=== PATIENT | male | born 1955 | race African-American/Black ===

== ENCOUNTER 2022-11-11 10:45 | Emergency (ER) | payer OTHER ==
--- OUTSIDE RECORDS SUMMARY | 2022-11-11 10:49 | XMS REPORT | Continuity of Care Document ---
:1955 Author Organization [facility] t Address [address] [place] [address] Care Team Providers Name Role Phone Daljit Gallardo Attending Clinician Unavailable Payers Payer Name Policy Type Policy Number Effective Date Expiration Date S terrell AET[employer] MEDICARE 53 [id number] 2018 Common [facility]pi rit PPO 00:00:00 [facility] Problems Condition Condition Condition Status Onset Resolution Last Treating Co mments Source Name Details Category Date Date Treatment Clinician Date Mixed Hyperlipid Problem Commo n hyperlipid emia, Spirit emia mixed [facility] [id number] Diabetic Problem Comm on neuropathy [facility] , painful [facility] Gastro-eso Gastro-eso Problem C ommon phageal phageal Spirit reflux reflux - [facility] disease disease St without without [facility]ophagiti [facility]ophagiti [facility] Vitamin B Problem Commo n B12 12 Spirit deficiency deficiency - [facility] (non St anemic) [facility] Type II Diabetes Problem Common diabetes type 2, Spirit mellitus uncontroll - CH I uncontroll ed [facility] Essential Benign Problem Common hypertensi essential Spi rit on HTN [facility] Osteoarthr Osteoarthr Problem C ommon itis of itis of Spirit multiple multiple - [facility] joints joints [facility] [id number] Adult BMI Problem Com mon 32.0-32.9 Spirit kg/sq m [facility] [id number] Renal Problem Common insufficie Spirit ncy [facility] [id number] Other Problem Common obesity Spirit due to - [facility]I excess [facility] Cataract Cataract Problem Commo n [facility] [id number] Constipati Problem Com mon on, Spirit unspecifie - CHI d constipati [facility] on [facility] [id number] Primary Problem Comm on osteoarthr Spirit itis of - [facility]I right [facility] [id number] Type [address] [facility] mellitus - [facility]I with [facility] long-term current use of insulin Allergies, Adverse Reactions, Alerts This patient has no known allergies or adverse reactions. Social History Social Habit Start Date Stop Date Quantity Comments Source History of Tobacco Use Co mmon [facility] Sex Assigned At Com mon [facility] Smoking Status Start Date Stop Date Source Never Smoker Common [facility] Medications Ordered Filled Start Stop Current Ordering Indication Dosage Frequency Signature Comments Components Source Medication Medication Date Date Medication? Clinician (SIG) Name Name Tizanidine Tizanidine 2020-0 Yes Daljit 1 tablet Common HCl HCl 8-20 Gallardo at bedtime Spirit 00:00: as needed - [facility] for muscle [facility] Cyclobenzap Cyclobenzap 2020-0 Yes Daljit 1 tablet Common rine HCl rine HCl 8-14 Gallardo at bedtime Spirit 00:00: as needed - [facility] LIDOCAINE LIDOCAINE 2018-10 No 5mL Com mon HCL 10MG/ML HCL 10MG/ML 0-18 S pirit 00:00: - [facility] Kenalog Kenalog 2018-10 No 1mL Common (Triamcinol (Triamcinol 0-18 S pirit one) one) 00:00: - [facility] LIDOCAINE LIDOCAINE 2018- No 5mL Com mon HCL 10MG/ML HCL 10MG/ML 0-18 [facility]-10 No 1mL Common (Triamcinol (Triamcinol 0-18 S pirit one) one) 00:00: - [facility] LIDOCAINE LIDOCAINE 2018- No 5mL Com mon HCL 10MG/ML HCL 10MG/ML 0-18 S pirit 00:00: - [facility] Kenalog Kenalog 2019-1 No 1mL Common (Triamcinol (Triamcinol 0-18 S pirit one) one) 00:00: - [facility] 00 [facility] Pharmacist Pharmacist No Pharmacist Choice Choice Choice Lancets - Lancets - Lancets - Jardiance Jardiance No 1{table QD Jardiance 25 MG 25 MG t} 25 MG Trulicity Trulicity No Trulicity 0.75 0.75 0.75 MG/0.5ML MG/0.5ML MG/0.5ML tiZANidine tiZANidine No QD tiZANidine HCl 2 MG HCl 2 MG HCl 2 MG Omeprazole Omeprazole No 1{capsu QD Omeprazole 40 MG 40 MG le} 40 MG Rosuvastati Rosuvastati No Rosuvastat n Calcium n Calcium in Calcium 10 MG 10 MG 10 MG Pharmacist Pharmacist No Pharmacist Choice Choice Choice Alcohol - Alcohol - Alcohol - Crestor 10 Crestor 10 No 1{table QD Crestor 10 MG MG t} MG Linzess Linzess No Linzess Omeprazole Omeprazole No 1{capsu QD Omeprazole 40 MG 40 MG le} 40 MG Prodigy No Prodigy No No Prodigy No Coding Coding Coding Blood Gluc Blood Gluc Blood Gluc - - - amLODIPine amLODIPine No 1{table QD amLODIPine Besylate 10 Besylate 10 t} Besylate MG MG 10 MG metFORMIN metFORMIN No metFORMIN HCl 1000 MG HCl 1000 MG HCl 1000 MG tiZANidine tiZANidine No QD tiZANidine HCl 2 MG HCl 2 MG HCl 2 MG Irbesartan Irbesartan No 1{table QD Irbesartan 300 MG 300 MG t} 300 MG Trulicity Trulicity No Trulicity 0.75 0.75 0.75 MG/0.5ML MG/0.5ML MG/0.5ML Pharmacist Pharmacist No Pharmacist Choice Choice Choice Lancets - Lancets - Lancets - Rosuvastati Rosuvastati No Rosuvastat n Calcium n Calcium in Calcium 10 MG 10 MG 10 MG Irbesartan Irbesartan No 1{table QD Irbesartan 300 MG 300 MG t} 300 MG Omeprazole Omeprazole No 1{capsu QD Omeprazole 40 MG 40 MG le} 40 MG Linzess Linzess No Linzess amLODIPine amLODIPine No amLODIPine Besylate 10 Besylate 10 Besylate MG MG 10 MG tiZANidine tiZANidine No QD tiZANidine HCl 2 MG HCl 2 MG HCl 2 MG metFORMIN metFORMIN No metFORMIN HCl 1000 MG HCl 1000 MG HCl 1000 MG Jardiance Jardiance No 1{table QD Jardiance 25 MG 25 MG t} 25 MG tiZANidine tiZANidine No QD tiZANidine HCl 2 MG HCl 2 MG HCl 2 MG Trulicity Trulicity No Trulicity 0.75mg/0.5m 0.75mg/0.5m 0.75mg/0.5 l l ml Prodigy No Prodigy No No Prodigy No Coding Coding Coding Blood Gluc Blood Gluc Blood Gluc - - - amLODIPine amLODIPine No 1{table QD amLODIPine Besylate 10 Besylate 10 t} Besylate MG MG 10 MG Omeprazole Omeprazole No 1{capsu QD Omeprazole 40 MG 40 MG le} 40 MG Crestor 10 Crestor 10 No 1{table QD Crestor 10 MG MG t} MG metFORMIN metFORMIN No 1{table BID metFORMIN HCl 1000 MG HCl 1000 MG t_with_ HCl 1000 meals} MG Pharmacist Pharmacist No Pharmacist Choice Choice Choice Alcohol - Alcohol - Alcohol - Jardiance Jardiance No 1{table QD Jardiance 25 MG 25 MG t} 25 MG Pharmacist Pharmacist No Pharmacist Choice Choice Choice Alcohol - Alcohol - Alcohol - tiZANidine tiZANidine No tiZANidine HCl 2 MG HCl 2 MG HCl 2 MG Rosuvastati Rosuvastati No Rosuvastat n Calcium n Calcium in Calcium 10 MG 10 MG 10 MG Pharmacist Pharmacist No Pharmacist Choice Choice Choice Lancets - Lancets - Lancets - Irbesartan Irbesartan No 1{table QD Irbesartan 300 MG 300 MG t} 300 MG Crestor 10 Crestor 10 No 1{table QD Crestor 10 MG MG t} MG metFORMIN metFORMIN No 1{table BID metFORMIN HCl 1000 MG HCl 1000 MG t_with_ HCl 1000 meals} MG tiZANidine tiZANidine No QD tiZANidine HCl 2 MG HCl 2 MG HCl 2 MG Omeprazole Omeprazole No 1{capsu QD Omeprazole 40 MG 40 MG le} 40 MG amLODIPine amLODIPine No 1{table QD amLODIPine Besylate 10 Besylate 10 t} Besylate MG MG 10 MG Prodigy No Prodigy No No Prodigy No Coding Coding Coding Blood Gluc Blood Gluc Blood Gluc - - - Trulicity Trulicity No Trulicity 0.75mg/0.5m 0.75mg/0.5m 0.75mg/0.5 l l ml metFORMIN metFORMIN No 1{table BID metFORMIN HCl 1000 MG HCl 1000 MG t_with_ HCl 1000 meals} MG Prodigy No Prodigy No No Prodigy No Coding Coding Coding Blood Gluc Blood Gluc Blood Gluc - - - Irbesartan Irbesartan No Irbesartan 300 MG 300 MG 300 MG Pharmacist Pharmacist No Pharmacist Choice Choice Choice Lancets - Lancets - Lancets - Crestor 10 Crestor 10 No 1{table QD Crestor 10 MG MG t} MG Rosuvastati Rosuvastati No Rosuvastat n Calcium n Calcium in Calcium 10 MG 10 MG 10 MG Omeprazole Omeprazole No Omeprazole 40 MG 40 MG 40 MG Omeprazole Omeprazole No 1{capsu QD Omeprazole 40 MG 40 MG le} 40 MG Pharmacist Pharmacist No Pharmacist Choice Choice Choice Alcohol - Alcohol - Alcohol - Trulicity Trulicity No Trulicity 0.75mg/0.5m 0.75mg/0.5m 0.75mg/0.5 l l ml Trulicity Trulicity No Trulicity 0.75 0.75 0.75 MG/0.5ML MG/0.5ML MG/0.5ML tiZANidine tiZANidine No tiZANidine HCl 2 MG HCl 2 MG HCl 2 MG metFORMIN metFORMIN No metFORMIN HCl 1000 MG HCl 1000 MG HCl 1000 MG Irbesartan Irbesartan No 1{table QD Irbesartan 300 MG 300 MG t} 300 MG tiZANidine tiZANidine No QD tiZANidine HCl 2 MG HCl 2 MG HCl 2 MG amLODIPine amLODIPine No 1{table QD amLODIPine Besylate 10 Besylate 10 t} Besylate MG MG 10 MG Jardiance Jardiance No 1{table QD Jardiance 25 MG 25 MG t} 25 MG Jardiance Jardiance No 1{table QD Jardiance 25 MG 25 MG t} 25 MG Rosuvastati Rosuvastati No Rosuvastat n Calcium n Calcium in Calcium 10 MG 10 MG 10 MG Omeprazole Omeprazole No 1{capsu QD Omeprazole 40 MG 40 MG le} 40 MG Prodigy No Prodigy No No Prodigy No Coding Coding Coding Blood Gluc Blood Gluc Blood Gluc - - - tiZANidine tiZANidine No QD tiZANidine HCl 2 MG HCl 2 MG HCl 2 MG Trulicity Trulicity No Trulicity 0.75mg/0.5m 0.75mg/0.5m 0.75mg/0.5 l l ml tiZANidine tiZANidine No QD tiZANidine HCl 2 MG HCl 2 MG HCl 2 MG Crestor 10 Crestor 10 No 1{table QD Crestor 10 MG MG t} MG Omeprazole Omeprazole No 1{capsu QD Omeprazole 40 MG 40 MG le} 40 MG Pharmacist Pharmacist No Pharmacist Choice Choice Choice Alcohol - Alcohol - Alcohol - amLODIPine amLODIPine No 1{table QD amLODIPine Besylate 10 Besylate 10 t} Besylate MG MG 10 MG Linzess Linzess No Linzess metFORMIN metFORMIN No 1{table BID metFORMIN HCl 1000 MG HCl 1000 MG t_with_ HCl 1000 meals} MG Irbesartan Irbesartan No 1{table QD Irbesartan 300 MG 300 MG t} 300 MG Pharmacist Pharmacist No Pharmacist Choice Choice Choice Lancets - Lancets - Lancets - metFORMIN metFORMIN No 1{table BID metFORMIN HCl 1000 MG HCl 1000 MG t_with_ HCl 1000 meals} MG Trulicity Trulicity No Trulicity 0.75mg/0.5m 0.75mg/0.5m 0.75mg/0.5 l l ml Immunizations Ordered Immunization Filled Immunization Date Status Commen ts Source Name Name FLUZONE HIGH DOSE FLUZONE HIGH DOSE 2022-08-26 Completed [facility] OVER 65 OVER 65 10:34:00 - [facility] Prevnar 20 (PCV20) Prevnar 20 (PCV20) 2021-12-24 Completed [facility] 10:19:00 - [facility] Prevnar 20 (PCV20) Prevnar 20 (PCV20) 2021-12-24 Completed [facility] 10:19:00 - [facility] Prevnar 20 (PCV20) Prevnar 20 (PCV20) 2021-12-24 Completed [facility] 10:19:00 - [facility] Fluzone Fluzone 2021-09-26 Completed [facility] 09:50:00 - [facility] Fluzone Fluzone 2021-09-26 Completed [facility] 09:50:00 - [facility] Fluzone Fluzone 2021-09-26 Completed [facility] 09:50:00 - [facility] Fluzone Fluzone 2021-09-26 Completed [facility] 09:50:00 - [facility] LIDOCAINE HCL LIDOCAINE HCL 2019-07-30 Completed Common S pirit 10MG/ML 10MG/ML 09:59:00 - [facility] Kenalog Kenalog 2019-07-30 Completed [facility] (Triamcinolone) (Triamcinolone) 09:59:00 - I [facility] FluAD FluAD 2018-11-17 Completed [facility] 10:01:00 - [facility] Adacel (Tdap) Adacel (Tdap) 2018-11-17 Completed Common S pirit 10:01:00 - [facility] FluAD FluAD 2018-11-17 Completed [facility] 10:01:00 - [facility] Adacel (Tdap) Adacel (Tdap) 2018-11-17 Completed Common S pirit 10:01:00 - [facility] FluAD FluAD 2018-11-17 Completed [facility] 10:01:00 - [facility] Adacel (Tdap) Adacel (Tdap) 2018-11-17 Completed Common S pirit 10:01:00 - [facility] FluAD FluAD 2018-11-17 Completed [facility] 10:01:00 - [facility] Adacel (Tdap) Adacel (Tdap) 2018-11-17 Completed Common S pirit 10:01:00 - [facility] FluAD FluAD 2018-11-17 Completed [facility] 10:01:00 - [facility] Adacel (Tdap) Adacel (Tdap) 2018-11-17 Completed Common S pirit 10:01:00 - [facility] TDAP > 7 TDAP > 7 2018-11-17 Completed [facility] Years-Adacel Years-Adacel 00:00:00 - [facility] FluAD FluAD 2018-11-17 Completed [facility] 00:00:00 [facility] Vital Signs Vital Name Observation Time Observation Value Comments Source height 2022-08-26 10:10:00 71 [in_i] Common [facility] weight 2022-08-26 10:10:00 209.5 [lb_av] [facility] temperature 2022-08-26 10:10:00 97.4 [degF] Common [facility] bmi 2022-08-26 10:10:00 29.22 kg/m2 [facility] oximetry 2022-08-26 10:10:00 98 % [facility] respiratory rate 2022-08-26 10:10:00 18 /min Comm on [facility] blood pressure 2022-08-26 10:10:00 135 mm[Hg] [facility] - systolic [facility] blood pressure 2022-08-26 10:10:00 70 mm[Hg] Common [facility] - diastolic [facility] height 2022-04-25 09:30:00 71 [in_i] [facility] weight 2022-04-25 09:30:00 215 [lb_av] [facility] temperature 2022-04-25 09:30:00 97.4 [degF] [facility] bmi 2022-04-25 09:30:00 29.98 kg/m2 [facility] oximetry 2022-04-25 09:30:00 97 % [facility] respiratory rate 2022-04-25 09:30:00 18 /min Comm on [facility] blood pressure 2022-04-25 09:30:00 137 mm[Hg] Common [facility] - systolic [facility] blood pressure 2022-04-25 09:30:00 72 mm[Hg] Common [facility] - diastolic [facility] height 2021-12-24 10:00:00 71 [in_i] Common [facility] weight 2021-12-24 10:00:00 207.3 [lb_av] Common [facility] temperature 2021-12-24 10:00:00 98.6 [degF] [facility] bmi 2021-12-24 10:00:00 28.91 kg/m2 [facility] oximetry 2021-12-24 10:00:00 99 % [facility] respiratory rate 2021-12-24 10:00:00 17 /min Comm on [facility] blood pressure 2021-12-24 10:00:00 132 mm[Hg] [facility] - systolic [facility] blood pressure 2021-12-24 10:00:00 76 mm[Hg] Common [facility] - diastolic [facility] height 2021-09-26 09:30:00 71 [in_i] Common [facility] weight 2021-09-26 09:30:00 218.2 [lb_av] [facility] temperature 2021-09-26 09:30:00 98.1 [degF] Common [facility] bmi 2021-09-26 09:30:00 30.43 kg/m2 [facility] oximetry 2021-09-26 09:30:00 98 % [facility] respiratory rate 2021-09-26 09:30:00 16 /min Comm on [facility] blood pressure 2021-09-26 09:30:00 135 mm[Hg] [facility] - systolic [facility] blood pressure 2021-09-26 09:30:00 72 mm[Hg] [facility] - diastolic [facility] height 2021-06-05 08:10:00 71 [in_i] Common [facility] weight 2021-06-05 08:10:00 222.6 [lb_av] [facility] temperature 2021-06-05 08:10:00 97.4 [degF] Common [facility] bmi 2021-06-05 08:10:00 31.04 kg/m2 Common S [facility] oximetry 2021-06-05 08:10:00 95 % Common S [facility] respiratory rate 2021-06-05 08:10:00 17 /min Comm on [facility] blood pressure 2021-06-05 08:10:00 132 mm[Hg] Common [facility] - systolic [facility] blood pressure 2021-06-05 08:10:00 70 mm[Hg] Common [facility] - diastolic [facility] Procedures This patient has no known procedures. Encounters Start End Encounter Admission Attending Care Care Encounter Source Date/Time Date/Time Type Type Clinicians Facility Department ID 2022-08-22 Outpatient Gallardo, STLMLC STLC [id number] Common 09:59:00 Daljit [facility] 2022-04-23 Outpatient Gallardo, STLMLC STLC [id number] Common 12:41:00 Daljit [facility] 2021-12-19 Outpatient Gallardo, STLMLC STLC [id number] Common 16:45:02 Daljit [facility] 2021-11-16 Outpatient Gallardo, STLMLC STLC [id number] Common 14:46:00 Daljit [facility] 2021-11-07 Outpatient Gallardo, STLMLC STLMLC [id number] Common 13:35:14 Daljit [facility] 2021-11-07 Outpatient Gallardo, STLMLC STLMLC [id number] Common 12:30:57 Daljit [id number] [facility] 2021-11-07 Outpatient Gallardo, STLMLC STLMLC [id number] Common 11:21:54 Daljit [id number] [facility] 2021-11-07 Outpatient Gallardo, STLMLC STLMLC [id number] Common 11:07:47 Daljit [id number] [facility] 2021-11-07 Outpatient Gallardo, STLMLC STLMLC [id number] Common 11:07:09 Daljit [id number] [facility] 2022-08-26 2022-08-26 OFFICE STLMLC STLMLC [id number] Co mmon 00:00:00 00:00:00 VISIT Spirit ESTAB PT - CHI LEVEL 4 [facility] 2022-04-25 2022-04-25 OFFICE STLMLC STLMLC [id number] Co mmon 00:00:00 00:00:00 VISIT Spirit ESTAB PT - CHI LEVEL 4 [facility] 2021-12-24 2021-12-24 PREV VISIT STLMLC STLMLC [id number] Common 00:00:00 00:00:00 EST AGE 63 Spi rit & OVER - CHI [facility] 2021-09-26 2021-09-26 OFFICE STLMLC STLMLC [id number] Co mmon 00:00:00 00:00:[address] [facility] ESTAB PT - CHI LEVEL 4 [facility] 2021-06-05 2021-06-05 OFFICE STLMLC STLMLC [id number] Co mmon 00:00:00 00:00:[address] [facility] ESTAB PT - CHI LEVEL 4 [facility] 2021-04-09 2021-04-09 Outpatient STLMLC STLMLC [id number] Common 00:00:00 00:00:00 [facility] 2021-03-07 2021-03-07 Outpatient STLMLC STLMLC [id number] Common 00:00:00 00:00:00 [facility] 2020-12-08 2020-12-08 Outpatient STLMLC STLMLC [id number] Common 00:00:00 00:00:00 [facility] 2020-12-08 2020-12-08 Outpatient STLMLC STLMLC [id number] Common 00:00:00 00:00:00 [facility] 2020-08-29 2020-08-29 Outpatient STLMLC STLMLC [id number] Common 00:00:00 00:00:00 [facility] 2020-05-31 2020-05-31 [facility] [id number] Common 16:29:00 16:29:00 [employer] [facility] [employer] [facility] 2020-05-26 2020-05-26 [facility] [id number] Common 10:15:00 10:15:[address] [facility] 2020-02-24 2020-02-24 [facility] [id number] Common 10:15:00 10:15:[address] [facility] 2019-11-26 2019-11-26 [facility] [id number] Common 08:15:00 08:15:[address] [facility] 2019-11-17 2019-11-17 [facility] [id number] Common 16:54:00 16:54:[address] [facility] 2019-09-06 2019-09-06 [facility] [id number] Common 10:00:00 10:00:00 [facility] - [facility] Clinic [facility] 2019-07-30 2019-07-30 [facility] [id number] Common 09:00:00 09:00:00 [facility] Joint - [facility] Clinic of [facility] 2019-07-14 2019-07-14 [facility] [id number] Common 08:45:00 08:45:[address] [facility] 2019-04-13 2019-04-13 [facility] [id number] Common 08:30:00 08:30:[address] [facility] 2019-01-15 2019-01-15 [facility] [id number] Common 08:15:00 08:15:[address] [facility] 2018-12-08 2018-12-08 [facility] [id number] Common 14:12:00 14:12:[address] [facility] 2018-11-17 2018-11-17 [facility] [id number] Common 09:30:00 09:30:[address] [facility] 2018-10-30 2018-10-30 [facility] [id number] Common 08:30:00 08:30:[address] [facility] 2018-10-14 2018-10-14 [facility] [id number] Common 08:15:00 08:15:[address] [facility] 2018-07-13 2018-07-13 [facility] [id number] Common 10:00:00 10:00:[address] [facility] 2018-06-03 2018-06-03 [facility] [id number] Common 15:08:00 15:08:[address] [facility] 2018-03-17 2018-03-17 [facility] [id number] Common 16:35:00 16:35:[address] [facility] 2018-03-17 2018-03-17 [facility] [id number] Common 13:30:00 13:30:[address] [facility] Results This patient has no known results.
[2022-11-11] MEDS ORDERED: CYCLOBENZAPRINE 10 MG TAB ONE (11:27)
[2022-11-11] MEDS ORDERED: KETOROLAC 30 MG/ML INJ ONE (11:28)
--- NOTE | 2022-11-11 12:43 | RAD REPORT ---
EXAM DESCRIPTION: RAD - C Spine Ap/Lat - 11/11/2022 12:02 pm CLINICAL HISTORY: PAIN COMPARISON: SPINE CERVICAL AP LAT dated 09/28/2012; SPINE CERVICAL W OBLIQUES dated 09/26/2003 FINDINGS: Cervical bodies are normal in height and alignment.No fracture or acute bony process seen. Moderate disc thinning with posterior osteophyte formation noted C4-5 and C5-6. No prevertebral soft tissue thickening or other suspicious soft tissue finding. The odontoid is normal lateral masses are symmetric. Mild aortic atherosclerosis. IMPRESSION: Moderate midcervical degenerative spondylosis.
--- NOTE | 2022-11-11 12:44 | RAD REPORT ---
EXAM DESCRIPTION: RAD - Shoulder Right 2 View - 11/11/2022 12:02 pm CLINICAL HISTORY: PAIN COMPARISON: Shoulder Right 2 View dated 04/13/2019 FINDINGS: Mild AC joint and glenohumeral joint arthritic changes. No fracture or dislocation seen.
--- NOTE | 2022-11-11 12:46 | RAD REPORT ---
EXAM DESCRIPTION: RAD - Elbow Right 3 View - 11/11/2022 12:03 pm CLINICAL HISTORY: PAIN COMPARISON: No comparisons FINDINGS: No acute fracture or dislocation. Small olecranon spur.
--- NOTE | 2022-11-11 12:56 | ER ---
Nurse's Notes [facility] Name: Blaine March Jr Age: 67 yrs Sex: Male : 1955 Arrival Date: 11/11/2022 Time: 10:47 Bed 12 Private MD: Daljit Gallardo Diagnosis: Other sprain of right shoulder joint;Sprain of ligaments of cervical spine, initial encounter Presentation: 11/11 10:54 Chief complaint: Patient states: he fell Friday11/08/2022 onto grass while working ap3 outside. patient states he fell onto his right elbow, injuring his right shoulder. Patient reports pain to his right shoulder and the right side of his neck. Coronavirus screen: At this time, the client does not indicate any symptoms associated with coronavirus-19. Ebola Screen: No symptoms or risks identified at this time. Initial Sepsis Screen: Does the patient meet any 2 criteria? No. Patient's initial sepsis screen is negative. Does the patient have a suspected source of infection? No. Patient's initial sepsis screen is negative. Risk Assessment: Do you want to hurt yourself or someone else? Patient reports no desire to harm self or others. Onset of symptoms was November 08, 2022. 10:54 Method Of Arrival: Ambulatory ap3 10:54 Acuity: MARÍA 4 ap3 Triage Assessment: 10:59 General: Appears uncomfortable, Behavior is calm, cooperative. Pain: Complains of pain ap3 in anterior aspect of right shoulder Pain radiates to neck Pain began suddenly, 2-3 days ago. 10:59 Neuro: Level of Consciousness is awake, alert, obeys commands, Oriented to person, ap3 place, time, situation, Gait is steady, Speech is normal. Cardiovascular: Patient's skin is warm and dry. Respiratory: Airway is patent Respiratory effort is even, unlabored, Respiratory pattern is regular, symmetrical. Musculoskeletal: Range of motion: intact in right shoulder. 12:23 Injury Description: fall from standing. ap3 Historical: - Allergies: 10:56 No Known Allergies; ap3 - Home Meds: 10:56 amlodipine 10 mg tab for hypertension [Active]; irbesartan 300 mg oral tab once daily ap3 [Active]; omeprazole 40 mg Oral cpDR [Active]; rosuvastatin 10 mg oral cpSP once daily [Active]; metformin 1,000 mg Oral tab [Active]; Jardiance 25 mg oral tab [Active]; Trulicity 0.75 mg/0.5 mL subcutaneous pnij once wkly [Active]; montelukast 10 mg oral tab [Active]; - PMHx: 10:56 Hypertensive disorder; Diabetes mellitus; Hypercholesterolemia; ap3 - Immunization history:: Client reports receiving the 2nd dose of the Covid vaccine, Flu vaccine is up to date. - Social history:: Smoking status: Patient denies any tobacco usage or history of. Screenin:23 [facility] ED Fall Risk Assessment (Adult) History of falling in the last 3 months, ap3 including since admission Yes- single mechanical fall (1 pt) Confusion or Disorientation No (0 pts) Intoxicated or Sedated No (0 pts) Impaired Gait No (0 pts) Mobility Assist Device Used No (0 pt) Altered Elimination No (0 pt) Score/Fall Risk Level 0 - 2 = Low Risk. Abuse screen: Denies threats or abuse. Nutritional screening: No deficits noted. Tuberculosis screening: No symptoms or risk factors identified. Vital Signs: 10:54 BP 155 / 67; Pulse 84; Resp 18; Pulse Ox 97% ; Weight 97.52 kg; Height 5 ft. 10 in. ap3 (177.80 cm); Pain 5/10; 10:54 Body Mass Index 30.85 (97.52 kg, 177.80 cm) ap3 ED Course: 10:47 Patient arrived in ED. as 10:48 Daljit Gallardo DO is Private Physician. as 10:49 Viridiana Dumont [facility] jh7 10:49 Se Slaughter MD is Attending Physician. jh7 10:56 Triage completed. ap3 11:14 Tiff Mccallum, RN is Primary Nurse. kr3 11:25 XRAY Elbow RIGHT 3 view Sent. kr3 12:04 XRAY Shoulder RIGHT 2 view In Process Unspecified. EDMS 12:04 XRAY C Spine Ap/lat In Process Unspecified. EDMS 12:04 XRAY Elbow RIGHT 3 view In Process Unspecified. EDMS 12:05 Primary Nurse role handed off by Tiff Mccallum, ANTHONY ap3 12:05 Shayla Zheng RN is Primary Nurse. ap3 12:23 Arm band placed on right wrist. ap3 12:23 Patient has correct armband on for positive identification. Bed in low position. Call ap3 light in reach. Side rails up X 1. Pulse ox on. NIBP on. Door closed. Noise minimized. 12:54 Daljit Gallardo DO is Referral Physician. [facility] 13:30 No provider procedures requiring assistance completed. Patient did not have IV access ap3 during this emergency room visit. Administered Medications: 11:32 Drug: Ketorolac 30 mg Route: IM; Site: left deltoid; kr3 12:21 Follow up: Response: No adverse reaction; Pain is decreased ap3 11:32 Drug: Flexeril (cyclobenzaprine) 10 mg Route: PO; kr3 12:21 Follow up: Response: No adverse reaction; Pain is decreased ap3 Medication: 13:30 VIS not applicable for this client. ap3 Outcome: 12:55 Discharge ordered by . [facility] 13:30 Discharged to home ambulatory. ap3 13:30 Condition: good 13:30 Discharge instructions given to patient, Instructed on discharge instructions, follow up and referral plans. Demonstrated understanding of instructions, follow-up care, medications, Prescriptions given X 2. 13:31 Patient left the ED. ap3 Signatures: Dispatcher [employer] Anisa Perez Amanda, RN RN ap3 Viridiana Dumont FNP FNP 7 Tiff Mccallum, RN RN kr3
--- NOTE | 2022-11-11 12:56 | EDPHYS ---
Physician Documentation [facility] Name: Blaine March Jr Age: 67 yrs Sex: Male : 1955 Arrival Date: 11/11/2022 Time: 10:47 Bed 12 Private MD: Gianluca Gallardoh ED Physician Se Slaughter HPI: 11/11 10:55 This 67 yrs old Black Male presents to ER via Ambulatory with complaints of Shoulder jh7 Injury, Elbow Injury. 10:55 The patient or guardian complains of decreased range of motion, pain, that is acute. jh7 right shoulder and right sternocleidomastoid. Onset: The symptoms/episode began/occurred 3 day(s) ago. Associated signs and symptoms: Pertinent negatives: abdominal pain, chest pain, dyspnea, shortness of breath, tingling. 67-year-old male states that he slipped and fell on the grass Friday. States that he fell on his right elbow but somehow injured his right shoulder and the right side of his neck. Denies numbness, tingling, syncope, or any other symptoms. States that he is having difficulty abducting his right shoulder.. Historical: - Allergies: 10:56 No Known Allergies; ap3 - Home Meds: 10:56 amlodipine 10 mg tab for hypertension [Active]; irbesartan 300 mg oral tab once daily ap3 [Active]; omeprazole 40 mg Oral cpDR [Active]; rosuvastatin 10 mg oral cpSP once daily [Active]; metformin 1,000 mg Oral tab [Active]; Jardiance 25 mg oral tab [Active]; Trulicity 0.75 mg/0.5 mL subcutaneous pnij once wkly [Active]; montelukast 10 mg oral tab [Active]; - PMHx: 10:56 Hypertensive disorder; Diabetes mellitus; Hypercholesterolemia; ap3 - Immunization history:: Client reports receiving the 2nd dose of the Covid vaccine, Flu vaccine is up to date. - Social history:: Smoking status: Patient denies any tobacco usage or history of. ROS: 10:55 Constitutional: Negative for fever, chills, and weight loss. jh7 10:55 Cardiovascular: Negative for chest pain, palpitations, and edema, Respiratory: Negative for shortness of breath, cough, wheezing, and pleuritic chest pain, Abdomen/GI: Negative for abdominal pain, nausea, vomiting, diarrhea, and constipation, Back: Negative for injury and pain, Skin: Negative for injury, rash, and discoloration, Neuro: Negative for headache, weakness, numbness, tingling, and seizure. 10:55 Neck: Positive for pain with movement, Negative for tenderness. 10:55 MS/extremity: Positive for injury or acute deformity, decreased range of motion, pain, Negative for swelling, tenderness. 10:55 All other systems are negative. Exam: 10:55 Musculoskeletal/extremity: R elbow: NVI, denies pain, full range of motion. R shoulder: jh7 NVI, no TTP, limitation in abduction of the shoulder secondary to pain.. 10:55 Neck: External neck: is normal, ROM/movement: pain, that is mild, with rotation to the jh7 right. 10:55 Constitutional: This is a well developed, well nourished patient who is awake, alert, jh7 and in no acute distress. Head/Face: Normocephalic, atraumatic. Cardiovascular: Regular rate and rhythm with a normal S1 and S2. No gallops, murmurs, or rubs. Normal PMI, no JVD. No pulse deficits. Respiratory: Lungs have equal breath sounds bilaterally, clear to auscultation and percussion. No rales, rhonchi or wheezes noted. No increased work of breathing, no retractions or nasal flaring. Abdomen/GI: Soft, non-tender, with normal bowel sounds. No distension or tympany. No guarding or rebound. No evidence of tenderness throughout. Back: No spinal tenderness. No costovertebral tenderness. Full range of motion. Skin: Warm, dry with normal turgor. Normal color with no rashes, no lesions, and no evidence of cellulitis. Neuro: Awake and alert, GCS 15, oriented to person, place, time, and situation. Sensory grossly intact. Normal gait. Vital Signs: 10:54 BP 155 / 67; Pulse 84; Resp 18; Pulse Ox 97% ; Weight 97.52 kg; Height 5 ft. 10 in. ap3 (177.80 cm); Pain 5/10; 10:54 Body Mass Index 30.85 (97.52 kg, 177.80 cm) ap3 MDM: 10:49 Patient medically screened. [facility] 13:00 Differential diagnosis: Anterior dislocation with fracture, humeral head fracture, jh7 tendonitis, Shoulder sprain, cervical sprain. Data reviewed: vital signs, nurses notes, radiologic studies, plain films. Independent interpretation of the following test(s) in the Emergency Department X-Ray: My interpretation is No acute findings. Counseling: I had a detailed discussion with the patient and/or guardian regarding: the historical points, exam findings, and any diagnostic results supporting the discharge/admit diagnosis, to return to the emergency department if symptoms worsen or persist or if there are any questions or concerns that arise at home. Response to treatment: the patient's symptoms have markedly improved after treatment. 11/11 11:02 Order name: XRAY Shoulder RIGHT 2 view; Complete Time: 12:51 [facility] 11/11 11:02 Order name: XRAY C Spine Ap/lat; Complete Time: 12:51 [facility] 11/11 11:02 Order name: XRAY Elbow RIGHT 3 view; Complete Time: 12:51 [facility] 11/11 12:56 Order name: Sling; Complete Time: 13:30 [facility] Administered Medications: 11:32 Drug: Ketorolac 30 mg Route: IM; Site: left deltoid; kr3 12:21 Follow up: Response: No adverse reaction; Pain is decreased ap3 11:32 Drug: Flexeril (cyclobenzaprine) 10 mg Route: PO; kr3 12:21 Follow up: Response: No adverse reaction; Pain is decreased ap3 Disposition: 11/12 06:59 Co-signature as Attending Physician, Se Slaughter MD I reviewed the patient's care rn provided by the Advanced Practice Provider and agree with the diagnosis and treatment plan. Disposition Summary: 11/11/22 12:55 Discharge Ordered [facility]: Home [facility] Problem[facility] Symptoms: have improved jh Condition: Stable [facility] Diagnosis - Other sprain of right shoulder joint jh7 - Sprain of ligaments of cervical spine, initial encounter [facility] Followup: [facility] - With: Daljit Gallardo DO - When: 2 - 3 days - Reason: Recheck today's complaints Discharge Instructions: - Discharge Summary Sheet 7 - Cervical Sprain jh7 - Shoulder Sprain [facility] - How to Use a Sling [facility] Forms: - Medication Reconciliation Form community hospital - Thank You Letter community hospital Prescriptions: - Naprosyn 500 mg Oral Tablet - take 1 tablet by ORAL route 2 times per day take with food; 30 tablet; Refills: jh7 0, Product Selection Permitted - Zanaflex 4 mg Oral Tablet - take 1 tablet by ORAL route every 8 hours As needed; 20 tablet; Refills: 0, jh7 Product Selection Permitted Signatures: Dispatcher [employer] EDSe Joshi MD MD rn Prokisch, Amanda, RN RN ap3 Viridiana Dumont FNP [employer] jh7 Tiff Mccallum RN RN kr3 Corrections: (The following items were deleted from the chart) 11/11 16:55 10:55 Neck: External neck: is normal, ROM/movement: pain, that is mild, with rotation jh7 to the right, jh7
[2022-11-11 13:35] VITALS: BP 155/67; O2SAT 97
== END 2022-11-11 13:31 | disposition home or self-care (01) ==
LOC: ER 10:45
DX: S43.491A Other sprain of right shoulder joint, initial encounter (principal); S13.4XXA Sprain of ligaments of cervical spine, initial encounter
CPT/HCPCS: 72040; 96372; 99283